=== PATIENT | male | born 1970 | race Caucasian/White ===

== ENCOUNTER 2018-01-31 12:40 | Emergency (ER) | payer BC, OTHER ==
[~2018-01-31] VITALS: Ht 172.7 cm; Wt 59.3 kg
[~2018-01-31 12:40] MED LIST: ACET-1008 PO; AMOX-422 PO; NORCO10T PO; OMEP-84 PO; VAL2T PO
[2018-01-31] MEDS ORDERED: normal saline 1000ML IV soln IVB ONE ×3 (13:10→13:20)
[2018-01-31] MEDS ORDERED: diphenhydrAMINE 50 mg/ml inj IV ONE (13:10)
[2018-01-31] MEDS ORDERED: metoclopramide 5 mg/ml inj IV ONE (13:10)
[2018-01-31] MEDS ORDERED: morphine 2 MG/ML inj. syringe IV ONE (13:20)
[2018-01-31] MEDS ORDERED: ondansetron/PF 4mg/2ml inj IV ONE (13:20)
[2018-01-31 13:23] LABS: BASOPHILS % (AUTO) 0 % (0-1); EOSINOPHILS % (AUTO) 0 % (0-6); HEMATOCRIT 51.3 % (42.0-52.0); HEMOGLOBIN 17.4 g/dl (14.0-17.9); LYMPHOCYTES # (AUTO) 1.3 X10'3 (1.1-4.8); LYMPHOCYTES % (AUTO) 5.4 % (21-51); MEAN CORPUSCULAR HEMOGLOBIN 32.7 PG (27.0-31.0); MEAN CORPUSCULAR HGB CONC 33.9 % (33.0-36.5); MEAN CORPUSCULAR VOLUME 96.4 FL (78-98); MEAN PLATELET VOLUME 7.6 FL (7.4-10.4); MONOCYTES # (AUTO) 0.5 X10'3 (0-0.9); MONOCYTES % (AUTO) 2.2 % (2-12); NEUTROPHILS # (AUTO) 22.1 X10'3 (1.8-7.7); NEUTROPHILS % (AUTO) 92.4 % (42-75); PLATELET COUNT 243 X10'3 (140-440); RED BLOOD COUNT 5.32 X10'6 (4.70-6.10); RED CELL DISTRIBUTION WIDTH 12.7 % (11.5-14.5); WHITE BLOOD COUNT 23.9 X10'3 (4.5-11.0)
[2018-01-31] MEDS ORDERED: morphine 4 MG/ML inj SYRINge ONE (13:25)
[2018-01-31 13:36] LABS: INR 1.1 INR; PROTHROMBIN TIME 10.9 SECONDS (9.0-12.0)
[2018-01-31 13:37] LABS: ALANINE AMINOTRANSFERASE 17 U/L (12-78); ALBUMIN 4.6 G/DL (3.4-5.0); ALBUMIN/GLOBULIN RATIO 1.2 (1.1-1.5); ALKALINE PHOSPHATASE 72 IU/L (46-116); ANION GAP 16 (8-16); ASPARTATE AMINO TRANSFERASE 19 U/L (10-37); BILIRUBIN,TOTAL 0.8 MG/DL (0.1-1.0); BLOOD UREA NITROGEN 13 MG/DL (7-18); BUN/CREATININE RATIO 12.9 (5.4-32.0); CALCIUM 9.3 MG/DL (8.5-10.1); CHLORIDE 104 MMOL/L (99-107); CREATININE 1.01 MG/DL (0.60-1.10); GLUCOSE 169 MG/DL (70-104); POTASSIUM 4.5 MMOL/L (3.5-5.1); SODIUM 142 MMOL/L (135-145); TOTAL CARBON DIOXIDE 22.1 MMOL/L (24-32); TOTAL PROTEIN 8.3 G/DL (6.4-8.2); eGFR 79 ML/MIN
[2018-01-31] MEDS ORDERED: normal saline 1000ML IV soln IV ONE (13:55)
[2018-01-31 14:23] LABS: MAGNESIUM 1.7 MG/DL (1.5-2.4)
[2018-01-31 14:42] LABS: PARTIAL THROMBOPLASTIN TIME 25 SECONDS (22-32)
[2018-01-31 15:45] VITALS: BP 125/64
[2018-01-31 15:58] LABS: CLARITY,URINE CLEAR (Clear); COLOR,URINE YELLOW (Yellow); GLUCOSE, URINE NEGATIVE (Neg); KETONES,URINE TRACE mg/dl (Neg); LEUKOCYTE ESTERASE ,URINE NEGATIVE (Neg); NITRITES, URINE NEGATIVE (Neg); OCCULT BLOOD,URINE TRACE-INTACT (Neg); PROTEIN,URINE NEGATIVE (Neg); UA COLLECTION TYPE URINAL; UROBILINOGEN,URINE 0.2 E.U/dL (0.2-1.0)
[2018-01-31 16:02] LABS: LIPASE 90 U/L (73-393)
[2018-01-31 16:04] LABS: BACTERIA,URINE NONE SEEN /HPF (Neg); MUCUS STRANDS MODERATE /LPF (Neg); SQUAMOUS EPITHELIAL CELL,UR FEW /LPF (FEW); WBC,URINE 0-4 /HPF (0-4)
[2018-01-31 16:39] LABS: URINE AMPHETAMINE SCREEN NEGATIVE (Neg); URINE BARBITUATE SCREEN NEGATIVE (Neg); URINE BENZODIAZEPINES SCREEN NEGATIVE (Neg); URINE CANNABINOID SCREEN POSITIVE (Neg); URINE COCAINE SCREEN NEGATIVE (Neg); URINE METHADONE SCREEN NEGATIVE (Neg); URINE OPIATE SCREEN POSITIVE (Neg); URINE PHENCYCLIDINE SCREEN NEGATIVE (Neg)
== END 2018-01-31 16:30 | disposition home or self-care (01) ==
LOC: ER 12:40
DX: R11.2 Nausea with vomiting, unspecified (principal); R10.32 Left lower quadrant pain; R10.12 Left upper quadrant pain; K21.9 Gastro-esophageal reflux disease without esophagitis; G89.29 Other chronic pain; F12.90 Cannabis use, unspecified, uncomplicated; Z88.2 Allergy status to sulfonamides; Z79.2 Long term (current) use of antibiotics; Z79.899 Other long term (current) drug therapy
CPT/HCPCS: 36415; 71045; 74176; 80053; 80305; 81001; 83605; 83690; 83735; 84145; 85025; 85610; 85730; 87040; 93005; 96361; 96374; 96375; 99284; J1200; J2270; J2405; J2765; J7030